=== PATIENT | male | born 1985 | race Caucasian/White ===

== ENCOUNTER 2020-03-31 10:10 | Emergency (ER) | payer MEDICAID ==
[~2020-03-31] VITALS: Ht 188 cm; Wt 154.2 kg
--- NOTE | 2020-03-31 10:27 | NUR ---
Patient transferred to bed 11 via wheelchair by tech. RN evaluating patient at bedside.
--- NOTE | 2020-03-31 10:29 | NUR ---
DR COLEMAN AT BEDSIDE EXAMINING PT
[2020-03-31 10:33] VITALS: BP 148/78
[2020-03-31] MEDS ORDERED: KETOROLAC 30 MG/ML VIAL IVP ONE (10:35)
[2020-03-31] MEDS ORDERED: ONDANSETRON 4 MG/2 ML VIAL IVP ONE ×2 (10:35→11:20)
[2020-03-31] MEDS ORDERED: NACL 0.9% 1,000 ML IV ONE ×2 (10:35→11:55)
[2020-03-31] MEDS ORDERED: PROCHLORPERAZINE 10 MG/2 ML VIAL ONE (10:46)
[2020-03-31] MEDS ORDERED: PROCHLORPERAZINE 10 MG/2 ML VIAL IVP ONE (10:50)
[2020-03-31 10:58] LABS: BASOPHILS # (AUTO) 0.1 K/uL (0.00-0.22); BASOPHILS % (AUTO) 0.9 % (0.0-2.0); EOSINOPHILS # (AUTO) 0.3 K/uL (0-0.4); EOSINOPHILS % (AUTO) 2.2 % (0.0-4.0); HEMATOCRIT 45.2 % (36-52); HEMOGLOBIN 15.1 g/dL (12.0-18.0); LYMPHOCYTES # (AUTO) 1.3 K/uL (2.0-11.5); LYMPHOCYTES % (AUTO) 10.7 % (20.5-51.1); MEAN CORPUSCULAR HEMOGLOBIN 30 pg (27-31); MEAN CORPUSCULAR HGB CONC 33 g/dL (33-37); MEAN CORPUSCULAR VOLUME 89.7 fL (80-94); MONOCYTES # (AUTO) 0.5 K/uL (0.8-1.0); MONOCYTES % (AUTO) 3.9 % (1.7-9.3); NEUTROPHILS % (AUTO) 82.3 % (42.2-75.2); PLATELET COUNT (AUTO) 308 K/uL (140-450); RED BLOOD CELL COUNT(AUTO) 5.04 MIL/uL (4.20-6.10); RED CELL DISTRIBUTION WIDTH 13.1 % (11.6-13.7); WHITE BLOOD COUNT (AUTO) 12.1 K/uL (4.8-10.8)
--- NOTE | 2020-03-31 10:58 | NUR ---
PT C/O NAUSEA AND VOMITING. ABD ROUND, SOFT, AND TENDER TO TOUCH. PAIN BETWEEN RT AND LT UPPER QUADRANT NO BOWEL SOUNDS PRESENT. PT STATES PAIN IS 10/10. PT STATES HE HAS BEEN VOMITING ALL MORNING. PMHX: IBS, GALLSTONES NKA/NKDA
--- NOTE | 2020-03-31 11:02 | NUR ---
PT TAKEN TO CT.
--- NOTE | 2020-03-31 11:08 | NUR ---
Patient taken to CT scan via wheelchair by tech.
--- NOTE | 2020-03-31 11:18 | NUR ---
Patient returned from CT scan. RN re-evaluating patient at bedside.
[2020-03-31] MEDS ORDERED: HALOPERIDOL IM 5 MG/ML VIAL IVP ONE (11:20)
[2020-03-31 11:23] LABS: ALBUMIN 4.4 g/dL (3.4-5.0); ANION GAP 12.8 (8-16); ASPARTATE AMINOTRANSFERASE 15 U/L (15-37); CARBON DIOXIDE 26.1 mmol/L (21-32); CHLORIDE 104 mmol/L (98-107); CREATININE 0.9 mg/dL (0.6-1.3); GFR ARICAN-AMERICAN 126 mL/min (>90); GLUCOSE 144 mg/dL (74-106); LIPASE 148 U/L (73-393); POTASSIUM 3.9 mmol/L (3.5-5.1); SODIUM SERUM 139 mmol/L (136-145); TOTAL BILIRUBIN 0.5 mg/dL (0.0-1.0); UREA NITROGEN, BLOOD 12 mg/dL (7-18)
--- NOTE | 2020-03-31 11:41 | NUR ---
PT RESTING AT BEDSIDE. WILL CONTINUE TO MONITOR.
--- NOTE | 2020-03-31 12:40 | NUR ---
SPOKE TO , WANTS CALL WHEN PT ABLE TO BE PICKED UP [facility] [phone]
--- NOTE | 2020-03-31 12:42 | NUR ---
VITALS TAKEN. PT RESTING AT BEDSIDE. EYES CLOSED. BREATHING IS STABLE. EVEN RESPIRTATIONS.
[2020-03-31 13:08] VITALS: BP 144/96
--- NOTE | 2020-03-31 13:11 | NUR ---
Patient discharged with v/s stable. Written and verbal after care instructions given and explained. Patient alert, oriented and verbalized understanding of instructions. Ambulatory with steady gait. All questions addressed prior to discharge. ID band removed. Patient advised to follow up with PMD. Rx of ZOFRAN 4MG TAB given. Patient educated on indication of medication including possible reaction and side effects. Opportunity to ask questions provided and answered.
== END 2020-03-31 13:11 | disposition home or self-care (01) ==
LOC: MED 10:10
DX: F12.19 Cannabis abuse with unspecified cannabis-induced disorder (principal); R11.2 Nausea with vomiting, unspecified; Z90.49 Acquired absence of other specified parts of digestive tract
CPT/HCPCS: 36415; 74176; 80053; 83690; 85025; 93005; 96361; 96374; 96375; 99285; G0482; J0780; J1630; J1885; J2405; J7030